=== PATIENT | female | born 1980 | race African-American/Black ===

== ENCOUNTER 2016-12-24 13:29 | Emergency (ER) | payer OTHER ==
[~2016-12-24] VITALS: Ht 180.3 cm; Wt 141.5 kg
[~2016-12-24 13:29] MED LIST: ILOTYCIN1 GM OD; NO MEDICATIONS; PRENATAL TABLET1 TA1 PO; ZOFRANODT PO
[2016-12-24] MEDS ORDERED: NO MEDICATIONS (21:00)
== END 2016-12-24 14:33 | disposition home or self-care (01) ==
LOC: SED 13:29
DX: H10.32 Unspecified acute conjunctivitis, left eye (principal); Z88.6 Allergy status to analgesic agent
CPT/HCPCS: 99283

== ENCOUNTER 2016-12-24 20:53 | Emergency (ER) | payer OTHER ==
[~2016-12-24] VITALS: Ht 180.3 cm; Wt 141.5 kg
[2016-12-24] MEDS ORDERED: NO MEDICATIONS (21:00)
== END 2016-12-24 21:52 | disposition home or self-care (01) ==
LOC: SED 20:53
DX: H10.32 Unspecified acute conjunctivitis, left eye (principal); Z88.8 Allergy status to other drugs, medicaments and biological substances
CPT/HCPCS: 99283